=== PATIENT | male | born 1990 | race Caucasian/White ===

== ENCOUNTER 2016-12-05 19:47 | Emergency (ER) | payer SELFPAY ==
[2016-12-05 19:50] VITALS: BMI 24.2
[2016-12-05] MEDS ORDERED: cefTRIAXone (Rocephin) 250 mg Inj IM STA (20:12)
[2016-12-05 20:52] LABS: RBC URINE 30 /hpf (0-3); URINE BILIRUBIN NEGATIVE (NEGATIVE); URINE BLOOD 2+ (NEGATIVE); URINE GLUCOSE (UA) NORMAL (Normal); URINE KETONE TRACE mg/dL (NEGATIVE); URINE LEUKOCYTE ESTERASE NEG Leu/uL (Negative); URINE PROTEIN 1+ mg/dL (NEGATIVE); WBC URINE 2 /hpf (0-5)
[2016-12-05 20:56] LABS: URINE COLOR YELLOW (YELLOW)
--- NOTE | 2016-12-05 21:07 | C.PDOC ---
History Of Present Illness 26 y/o male presents to the ED requesting STD testing. Pt reports history of chlamydia in the past with similar symptoms. Pt complaining of dysuria and discharge the past 2 days. Pt admits to being sexually active without using protection. Denies fever, scrotal pain or swelling or any other complaints. PMHx cerebral palsy Time Seen by Provider: 12/05/16 20:04 Chief Complaint (Nursing): Male Genitourinary History Per: Patient History/Exam Limitations: no limitations Onset/Duration Of Symptoms: Days Current Symptoms Are (Timing): Still Present Severity: Mild Associated Symptoms: Urinary Symptoms. denies: Fever Alleviating Factors: None Recent travel outside of the [place]: No Past Medical History Reviewed: Historical Data, Nursing Documentation, Vital Signs Vital Signs: Last Vital Signs Temp 98.1 F 12/05/16 21:16 Pulse 94 H 12/05/16 21:16 Resp 20 12/05/16 21:16 BP 125/82 12/05/16 21:16 Pulse Ox 100 12/05/16 21:32 Family History: States: Unknown Family Hx - Social History Hx Alcohol Use: Yes Hx Substance Use: Yes - Immunization History Hx Tetanus Toxoid Vaccination: No Hx Influenza Vaccination: No Hx Pneumococcal Vaccination: No Review Of Systems Constitutional: Negative for: Fever, Chills Gastrointestinal: Negative for: Abdominal Pain Genitourinary: Positive for: Dysuria, Penile Discharge. Negative for: Scrotal Pain Physical Exam - Physical Exam Appears: Non-toxic, No Acute Distress Skin: Warm, Dry, No Rash Head: Atraumatic, Normacephalic Neck: Normal, Normal ROM, Supple Chest: Symmetrical, No Tenderness Cardiovascular: Rhythm Regular, No Murmur Respiratory: Normal Breath Sounds, No Rales, No Rhonchi, No Wheezing Gastrointestinal/Abdominal: Normal Exam, Soft, No Tenderness Male Genital: Normal Inspection, No Testicular Tenderness, No Scrotal Swelling, Circumcised, Other (no penile discharge) Extremity: Bilateral: Atraumatic Neurological/Psych: Oriented x3, Normal Speech ED Course And Treatment O2 Sat by Pulse Oximetry: 100 (room air) Pulse Ox Interpretation: Normal Medical Decision Making Medical Decision Making: Plan: * test for chlamydia/GC * UA Patient with possible exposure to STI, will treat with rocephin, zithromax Disposition Counseled Patient/Family Regarding: Diagnosis, Need For Followup - Disposition Referrals: Non [facility] Provider, [Primary Care Provider] - Disposition: HOME/ ROUTINE Disposition Time: 21:06 Condition: STABLE Additional Instructions: You have been treated for STI with Rocephin and Zithromax Cultures have been obtained and can take 2-4 days for results You may call [facility] service for any assistance [phone]. Instructions: Safe Sex (ED) - POA Present On Arrival: None - Clinical Impression Clinical Impression: Possible exposure to STD - PA / PROBATE PAR[place]GAL / Resident Statement MD/DO has reviewed & agrees with the documentation as recorded. - Scribe Statement The provider has reviewed the documentation as recorded by the Scribdank Felton All medical record entries made by the Barbaraibe were at my direction and personally dictated by me. I have reviewed the chart and agree that the record accurately reflects my personal performance of the history, physical exam, medical decision making, and the department course for this patient. I have also personally directed, reviewed, and agree with the discharge instructions and disposition.
[2016-12-05 21:18] VITALS: BP 125/82; PULSE 94; RESP 20; TEMP 98.1
[2016-12-05 21:26] VITALS: O2SAT 100
== END 2016-12-05 21:16 | disposition home or self-care (01) ==
LOC: SUPCPDRO 19:47 → C.ER 19:47
DX: Z04.8 Encounter for examination and observation for other specified reasons (principal)
CPT/HCPCS: 81001; 87086; 87491; 87591; 96372; 99284; J0696